=== PATIENT | male | born 1935 | race Caucasian/White ===

== ENCOUNTER 2016-12-21 07:43 | Day surgery (SDC) | payer MEDICARE, BC ==
[~2016-12-21] VITALS: Ht 193 cm; Wt 108.6 kg
[~2016-12-21 07:43] MED LIST: ACIPHEX20 MG PO; ACTOPLUS MET 501 TAB PO; ACTOS 15MG TAB15 MG PO; ACTOS 45MG45 MG/TAB PO; ALDACTONE 25MG25 M1 PO; ALTACE 10MG TAB10 MG PO; ALTACE10 MG PO; ARTANE PO; ASPIR-LOW81 MG PO; ASPIRIN E.C. 8181 MG PO; BENICAR 20MG TA20 MG PO; BENICAR20 MG PO; BYSTOLIC10 MG PO; BYSTOLIC5 MG PO; CARVEDILOL PO; CIPRO 500MG TA500 MG PO; CLOPIDOGREL; CLOPIDOGREL PO; COREG 3.123.125 MG/T PO; DOXYCYCLINE 10100 MG PO; FISH OIL1000 MG PO; FOLIC ACID0.4 MG PO; FORTAMET500 MG PO; GLUCOPHAGE500 MG/TAB PO; GRALISE600 MG PO; IMDUR 30MG30 MG/TAB PO; LANTUS SOLOS100 U/ML SQ; LIPITOR20 MG PO; NIACIN250 M2 PO; NIACIN250 MG PO; NITROSTAT0.4 MG/TAB SL; NORVASC 10MG10 MG PO; OMEPRAZOLE D/R20 MG PO; PIOGLITAZONE-METFORM PO; PLAVIX 75MG TAB75 MG PO; PRAVACHOL 20MG20 MG PO; PRILOSEC 20MG20 MG PO; RANEXA 500MG T500 MG PO; SIMVASTATIN20 MG PO; TYLENOL 500MG500 MG PO; UROCIT PO; VALTREX1 GM PO; VITAMIN D1000 IU PO; VITAMIN D32000 IU PO; ZANTAC 7575 MG PO; ZOCOR20 MG PO; [UNRECOGNIZED DRUG - MIXTURE] PO
[2016-12-21 08:50] LABS: BASO # 0.1 (0.0-0.2); BASO % 0.9 % (0.0-2.0); EOS # 0.4 (0.0-0.7); EOS % 6.6 % (0-4.0); GRAN # 3.6 (1.4-6.5); GRAN % 56.4 % (42.2-75.2); HEMATOCRIT 40.4 % (42.0-52.0); HEMOGLOBIN 13.4 g/dl (13.5-18.0); LYMPH # 1.7 (1.2-3.4); LYMPH % 27.1 % (20.0-51.0); MEAN CELL VOLUME 93 fl (80.0-100.0); MEAN CORPUSCULAR HEMOGLOBIN 31 pg (27.0-31.0); MEAN CORPUSCULAR HGB CONC 33 g/dl (33.0-37.0); MONO # 0.6 (0.1-0.6); MONO % 8.7 % (1.7-9.3); PLATELET COUNT 215 K/mm3 (130-400); RED BLOOD COUNT 4.36 M/mm3 (4.20-5.60); REDCELL DISTRIBUTION WIDTH-CV 13.2 % (11.5-14.5); WHITE BLOOD COUNT 6.3 K/mm3 (4.8-10.8)
[2016-12-21 08:54] VITALS: BP 115/63; PULSE 63; TEMP 97.1
[2016-12-21] MEDS ORDERED: IMDUR 60MG60 MG/TAB PO (08:59)
[2016-12-21] MEDS ORDERED: FOLIC ACID0.4 MG PO (09:01)
[2016-12-21] MEDS ORDERED: NORVASC 5MG5 MG/TAB PO (09:01)
[2016-12-21] MEDS ORDERED: COREG 6.256.25 MG/TA PO (09:02)
[2016-12-21] MEDS ORDERED: VITAMIN D31000 IU PO (09:03)
[2016-12-21 10:30] VITALS: BP 101/54; PULSE 64; TEMP 97.2
[2016-12-21 10:45] VITALS: BP 103/58; PULSE 62
[2016-12-21 11:00] VITALS: BP 109/62; PULSE 61
[2016-12-21 11:15] VITALS: BP 120/67; PULSE 61
== END 2016-12-21 11:45 | disposition home or self-care (01) ==
LOC: SDCO 07:43
PROVIDERS: Urology
DX: N35.8 Other urethral stricture (principal); E11.9 Type 2 diabetes mellitus without complications; Z79.4 Long term (current) use of insulin; I10 Essential (primary) hypertension
CPT/HCPCS: C1769; J0690; J2704; J3010; J7030

== ENCOUNTER 2016-12-31 07:46 | Emergency (ER) | payer MEDICARE, BC ==
[~2016-12-31] VITALS: Ht 193 cm; Wt 109.1 kg
[~2016-12-31 07:46] MED LIST changes: +COREG 6.256.25 MG/TA PO; +IMDUR 60MG60 MG/TAB PO; +NORVASC 5MG5 MG/TAB PO; +VITAMIN D31000 IU PO
[2016-12-31 07:47] VITALS: TEMP 97.9
[2016-12-31 08:37] LABS: BASO # 0.1 (0.0-0.2); EOS # 0.5 (0.0-0.7); EOS % 8.9 % (0-4.0); GRAN # 3.2 (1.4-6.5); GRAN % 52.1 % (42.2-75.2); HEMATOCRIT 44.9 % (42.0-52.0); HEMOGLOBIN 15.3 g/dl (13.5-18.0); LYMPH # 1.9 (1.2-3.4); LYMPH % 31.2 % (20.0-51.0); MEAN CELL VOLUME 91 fl (80.0-100.0); MEAN CORPUSCULAR HEMOGLOBIN 31 pg (27.0-31.0); MEAN CORPUSCULAR HGB CONC 34 g/dl (33.0-37.0); MEAN PLATELET VOLUME 11.5 fl (7.4-10.4); MONO # 0.4 (0.1-0.6); MONO % 6.6 % (1.7-9.3); PLATELET COUNT 245 K/mm3 (130-400); RED BLOOD COUNT 4.93 M/mm3 (4.20-5.60); REDCELL DISTRIBUTION WIDTH-CV 12.8 % (11.5-14.5); WHITE BLOOD COUNT 6.1 K/mm3 (4.8-10.8)
[2016-12-31 08:57] LABS: ADJUSTED CALCIUM 9.5 mg/dL (8.4-10.2); ALANINE AMINOTRANSFERASE 21 U/L (21-72); ALBUMIN 4.3 gm/dL (3.5-5.0); ALKALINE PHOSPHATASE 59 U/L (50-136); ANION GAP 11 mmol/L (7-16); BILIRUBIN,TOTAL 0.9 mg/dL (0.0-1.0); BLOOD UREA NITROGEN 21 mg/dL (9-20); CALCIUM 9.7 mg/dL (8.4-10.2); CARBON DIOXIDE 26 mmol/L (22-30); CHLORIDE 103 mmol/L (98-107); CREATININE, serum 1.25 mg/dL (0.66-1.25); GLUCOSE 152 mg/dL (74-106); POTASSIUM 4.4 mmol/L (3.4-5.0); SODIUM 139 mmol/L (137-145); TOTAL PROTEIN 7.8 gm/dL (6.4-8.2)
[2016-12-31 09:07] LABS: INR 0.9 (0.8-3.0); PROTHROMBIN TIME 10.1 SECONDS (9.7-12.8)
[2016-12-31 09:08] LABS: TROPONIN-I < 0.012 ng/mL (0.000-0.034)
[2016-12-31 09:10] LABS: PARTIAL THROMBOPLASTIN TIME 30.9 SECONDS (26.0-37.0)
[2016-12-31 09:56] VITALS: BP 143/81; PULSE 81
== END 2016-12-31 10:14 | disposition home or self-care (01) ==
LOC: COL.ER 07:46
PROVIDERS: Family Medicine
DX: I25.119 Atherosclerotic heart disease of native coronary artery with unspecified angina pectoris (principal); E11.9 Type 2 diabetes mellitus without complications; E78.5 Hyperlipidemia, unspecified; I25.10 Atherosclerotic heart disease of native coronary artery without angina pectoris; Z95.5 Presence of coronary angioplasty implant and graft; Z95.0 Presence of cardiac pacemaker; I25.2 Old myocardial infarction; R06.02 Shortness of breath; Z79.4 Long term (current) use of insulin

== ENCOUNTER → 2017-02-26 | Outpatient (CLI) | payer MEDICARE, BC | LOC: COL.RAD 10:53 | DX: M47.817 Spondylosis without myelopathy or radiculopathy, lumbosacral region (principal); M43.17 Spondylolisthesis, lumbosacral region; M25.78 Osteophyte, vertebrae; M48.07 Spinal stenosis, lumbosacral region; M51.36 Other intervertebral disc degeneration, lumbar region; Z98.890 Other specified postprocedural states; Z98.1 Arthrodesis status ==

== ENCOUNTER 2017-06-01 07:21 | Outpatient (CLI) | payer MEDICARE, BC ==
[2017-06-01] VITALS (7 sets, daily range): BP systolic 117–136; BP diastolic 59–88; PULSE 59–78
[~2017-06-01] VITALS: Ht 193 cm; Wt 106.3 kg
[2017-06-01 12:22] LABS: CEREBROSPINAL TUBE #4; CSF APPEARANCE CLEAR; CSF COLOR COLORLESS
== END 2017-06-01 10:56 | disposition home or self-care (01) ==
LOC: COL.RAD 07:21
PROVIDERS: Family Medicine
DX: I63.9 Cerebral infarction, unspecified (principal); R90.82 White matter disease, unspecified
CPT/HCPCS: Q9967

== ENCOUNTER → 2017-11-06 | Outpatient (CLI) | payer MEDICARE, BC | LOC: MHCPAIN 08:57 | DX: G89.29 Other chronic pain (principal); M47.817 Spondylosis without myelopathy or radiculopathy, lumbosacral region; M54.16 Radiculopathy, lumbar region; M53.3 Sacrococcygeal disorders, not elsewhere classified; M96.1 Postlaminectomy syndrome, not elsewhere classified; M48.061 Spinal stenosis, lumbar region without neurogenic claudication | CPT/HCPCS: G0463 ==

== ENCOUNTER → 2017-11-28 | Outpatient (CLI) | payer MEDICARE, BC | LOC: MHCPAIN 12:24 | DX: M47.27 Other spondylosis with radiculopathy, lumbosacral region (principal); M48.061 Spinal stenosis, lumbar region without neurogenic claudication; M96.1 Postlaminectomy syndrome, not elsewhere classified | CPT/HCPCS: J1100; Q9967 ==

== ENCOUNTER → 2017-12-12 | Outpatient (CLI) | payer MEDICARE, BC | LOC: MHCPAIN 10:38 | DX: G89.29 Other chronic pain (principal); M47.817 Spondylosis without myelopathy or radiculopathy, lumbosacral region; M54.16 Radiculopathy, lumbar region; M53.3 Sacrococcygeal disorders, not elsewhere classified; M96.1 Postlaminectomy syndrome, not elsewhere classified; M48.061 Spinal stenosis, lumbar region without neurogenic claudication | CPT/HCPCS: G0463 ==

== ENCOUNTER → 2018-05-01 | Outpatient (CLI) | payer MEDICARE, BC | LOC: COL.RAD 07:20 | DX: E11.9 Type 2 diabetes mellitus without complications (principal); K21.9 Gastro-esophageal reflux disease without esophagitis; R68.81 Early satiety | CPT/HCPCS: A9541 ==

== ENCOUNTER 2018-08-05 14:45 | Inpatient (IN) | payer MEDICARE, BC ==
[~2018-08-05] VITALS: Ht 193 cm; Wt 110.6 kg
[2018-08-05] MEDS ORDERED: REGLAN 5MG T5 MG/TAB PO ×2 (15:00)
[2018-08-05] MEDS ORDERED: ACTOPLUS MET 501 TAB PO (15:03)
[2018-08-05 15:18] LABS: BASO # 0.1 (0.0-0.2); BASO % 0.7 % (0.0-2.0); EOS # 0.5 (0.0-0.7); EOS % 5.5 % (0-4.0); GRAN % 57.5 % (42.2-75.2); HEMATOCRIT 42.4 % (42.0-52.0); HEMOGLOBIN 14.1 g/dl (13.5-18.0); LYMPH # 2.4 (1.2-3.4); LYMPH % 27.6 % (20.0-51.0); MEAN CELL VOLUME 93 fl (80.0-100.0); MEAN CORPUSCULAR HEMOGLOBIN 31 pg (27.0-31.0); MEAN CORPUSCULAR HGB CONC 33 g/dl (33.0-37.0); MEAN PLATELET VOLUME 11.4 fl (7.4-10.4); MONO # 0.7 (0.1-0.6); MONO % 8.4 % (1.7-9.3); PLATELET COUNT 250 K/mm3 (130-400); RED BLOOD COUNT 4.56 M/mm3 (4.20-5.60); REDCELL DISTRIBUTION WIDTH-CV 12.8 % (11.5-14.5)
[2018-08-05 15:20] LABS: INR 0.9 (0.8-3.0); PROTHROMBIN TIME 10.4 SECONDS (9.7-12.8)
[2018-08-05 15:22] LABS: PARTIAL THROMBOPLASTIN TIME 30.7 SECONDS (26.0-37.0)
[2018-08-05 15:33] LABS: ALANINE AMINOTRANSFERASE 18 U/L (21-72); ALBUMIN 3.8 gm/dL (3.5-5.0); ALKALINE PHOSPHATASE 65 U/L (50-136); ANION GAP 6 mmol/L (7-16); AST,SGOT 25 U/L (15-37); BILIRUBIN,TOTAL 0.4 mg/dL (0.0-1.0); BLOOD UREA NITROGEN 25 mg/dL (9-20); CALCIUM 9.2 mg/dL (8.4-10.2); CARBON DIOXIDE 26 mmol/L (22-30); CHLORIDE 108 mmol/L (98-107); GLUCOSE 190 mg/dL (74-106); POTASSIUM 4.7 mmol/L (3.4-5.0); SODIUM 140 mmol/L (137-145); TOTAL PROTEIN 7.1 gm/dL (6.4-8.2)
[2018-08-05 15:34] LABS: C-REACTIVE PROTEIN < 0.5 mg/dL (0.0-0.9)
[2018-08-05 16:19] LABS: TROPONIN-I < 0.012 ng/mL (0.000-0.034)
[2018-08-05 16:51] LABS: COLLECTION METHOD CLEAN CATCH
[2018-08-05 17:27] LABS: PH 5 (5-8); SQUAMOUS EPITHELIAL 0-2 /hpf; URINE APPEARANCE Hazy; URINE BACTERIA Rare /hpf; URINE BILIRUBIN Negative (NEGATIVE); URINE BLOOD 1+ (NEGATIVE); URINE COLOR Yellow; URINE GLUCOSE 1+ (NEGATIVE); URINE KETONE Negative (NEGATIVE); URINE LEUKOCYTE ESTERASE 3+ (NEGATIVE); URINE NITRATE Negative (NEGATIVE); URINE PROTEIN(semi-quant) 1+ (NEGATIVE); URINE UROBILINOGEN Negative (NEGATIVE)
[2018-08-05 21:35] VITALS: BP 137/63; PULSE 66; TEMP 98.1
[2018-08-05 23:08] VITALS: BP 114/51; PULSE 97; TEMP 98.2
[2018-08-06 04:40] VITALS: BP 104/40; PULSE 60; TEMP 98.2
[2018-08-06 06:36] LABS: BASO # 0.1 (0.0-0.2); BASO % 0.7 % (0.0-2.0); EOS # 0.5 (0.0-0.7); EOS % 7.2 % (0-4.0); GRAN # 3.8 (1.4-6.5); GRAN % 51.9 % (42.2-75.2); HEMATOCRIT 37.6 % (42.0-52.0); HEMOGLOBIN 12.4 g/dl (13.5-18.0); LYMPH # 2.2 (1.2-3.4); LYMPH % 29.3 % (20.0-51.0); MEAN CELL VOLUME 93 fl (80.0-100.0); MEAN CORPUSCULAR HEMOGLOBIN 31 pg (27.0-31.0); MEAN CORPUSCULAR HGB CONC 33 g/dl (33.0-37.0); MEAN PLATELET VOLUME 11.6 fl (7.4-10.4); MONO # 0.8 (0.1-0.6); MONO % 10.5 % (1.7-9.3); PLATELET COUNT 238 K/mm3 (130-400); RED BLOOD COUNT 4.05 M/mm3 (4.20-5.60); REDCELL DISTRIBUTION WIDTH-CV 12.9 % (11.5-14.5)
[2018-08-06 06:42] LABS: ALBUMIN 3.2 gm/dL (3.5-5.0); BILIRUBIN,TOTAL 0.4 mg/dL (0.0-1.0); CALCIUM 8.7 mg/dL (8.4-10.2); CHOLESTEROL RISK RATIO 3.7; CREATININE, serum 1.27 mg/dL (0.66-1.25); TOTAL PROTEIN 6.3 gm/dL (6.4-8.2)
[2018-08-06 08:32] VITALS: BP 122/57; PULSE 61; TEMP 97.7
[2018-08-06 12:38] VITALS: BP 112/58; PULSE 69; TEMP 98.9
[2018-08-06 15:17] VITALS: BP 112/44; PULSE 61; TEMP 99
[2018-08-06 20:00] VITALS: BP 118/49; PULSE 79; TEMP 98.5
[2018-08-07 02:20] VITALS: BP 118/50; PULSE 71; TEMP 98.2
[2018-08-07 07:30] VITALS: BP 122/51; PULSE 65; TEMP 97.6
[2018-08-07 08:41] LABS: CREATININE, serum 1.22 mg/dL (0.66-1.25); POTASSIUM 4.1 mmol/L (3.4-5.0)
[2018-08-07 10:53] VITALS: BP 136/79; PULSE 64; TEMP 97.2
[2018-08-07] MEDS ORDERED: ASPIRIN 32325 MG/TAB PO (11:34)
[2018-08-07] MEDS ORDERED: SINEMET 25/101 UDTAB PO (11:39)
[2018-08-07] MEDS ORDERED: DOXYCYCLINE HY100 MG PO (11:42)
== END 2018-08-07 14:00 | disposition home health service (06) | DRG 65 ==
LOC: COL.ER 14:45 → MEDICAL 16:59
PROVIDERS: Emergency Medicine; Internal Medicine; Physician Assistant
DX: I63.9 Cerebral infarction, unspecified (principal); N39.0 Urinary tract infection, site not specified; G81.94 Hemiplegia, unspecified affecting left nondominant side; Z66 Do not resuscitate; R13.10 Dysphagia, unspecified; I10 Essential (primary) hypertension; I25.10 Atherosclerotic heart disease of native coronary artery without angina pectoris; I12.9 Hypertensive chronic kidney disease with stage 1 through stage 4 chronic kidney disease, or unspecified chronic kidney disease; E11.22 Type 2 diabetes mellitus with diabetic chronic kidney disease; N18.9 Chronic kidney disease, unspecified; G20 Parkinson's disease; B95.62 Methicillin resistant Staphylococcus aureus infection as the cause of diseases classified elsewhere; E11.42 Type 2 diabetes mellitus with diabetic polyneuropathy; E78.5 Hyperlipidemia, unspecified; Z95.5 Presence of coronary angioplasty implant and graft; Z95.0 Presence of cardiac pacemaker
CPT/HCPCS: 99223-AI; 99232-AI; 99239; A4216; G8978-GP; G8979-GP; G8987-GO; G8988-GO; G8996-GN; G8997-GN; J0696; J1644; J1815; J3370; J7030; J7040

== ENCOUNTER → 2018-09-17 | Outpatient (CLI) | payer MEDICARE, BC ==
[~2018-09-17] MED LIST changes: +ASPIRIN 32325 MG/TAB PO; +DOXYCYCLINE HY100 MG PO; +REGLAN 5MG T5 MG/TAB PO; +SINEMET 25/101 UDTAB PO
== END ==
LOC: COL.RAD 10:30
DX: M48.02 Spinal stenosis, cervical region (principal); R26.1 Paralytic gait

== ENCOUNTER → 2018-11-13 | Outpatient (REF) | LOC: ZLAB.WCH 16:09 | DX: Z01.89 Encounter for other specified special examinations (principal) ==

== ENCOUNTER 2019-01-10 09:45 | Outpatient (RCR) | payer MEDICARE, BC | END 2019-01-13 | disposition home or self-care (01) | LOC: MKS.ESL.PT | DX: I69.354 Hemiplegia and hemiparesis following cerebral infarction affecting left non-dominant side (principal); Z79.82 Long term (current) use of aspirin; Z79.4 Long term (current) use of insulin; Z79.899 Other long term (current) drug therapy ==

== ENCOUNTER 2019-04-09 10:15 | Outpatient (RCR) | payer MEDICARE, BC | END 2019-04-10 12:20 | disposition home or self-care (01) | LOC: MKS.ESL.PT 10:15 | DX: I69.354 Hemiplegia and hemiparesis following cerebral infarction affecting left non-dominant side (principal) ==

== ENCOUNTER 2019-04-25 07:56 | Day surgery (SDC) | payer MEDICARE, BC ==
[~2019-04-25] VITALS: Ht 193 cm; Wt 112.0 kg
[2019-04-25] VITALS (7 sets, daily range): BP systolic 111–117; BP diastolic 56–66; PULSE 62–78; TEMP 97–97.8
[2019-04-25] MEDS ORDERED: SYNTHROID0.05 MG/TA PO (08:49)
[2019-04-25] MEDS ORDERED: ALTACE 10MG TAB10 MG PO (08:52)
[2019-04-25] MEDS ORDERED: RAPATHA SQ (08:56)
[2019-04-25] MEDS ORDERED: FOLIC ACID 40400 MCG PO (08:57)
[2019-04-25] MEDS ORDERED: REPATHA SU140 MG/1 M SQ (09:01)
[2019-04-25] MEDS ORDERED: [UNRECOGNIZED DRUG - OTHER] PO ×2 (09:02→09:06)
[2019-04-25] MEDS ORDERED: CEPHALEXIN500 M1 PO (09:03)
--- NOTE | 2019-04-25 09:13 | NUR ---
TO RM 6 PER WC AT 0805 CALL LIGHT IN REACH
--- NOTE | 2019-04-25 12:00 | NUR ---
TO RM 6 PER CART FROM PACU. ALERT ORIENTED X3, TALKING TO STAFF AND . DENIES PAIN OR DISCOMFORT. DENIES NAUSEA TROY IN PLACE WITH LEG BAG. 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
--- NOTE | 2019-04-25 12:30 | NUR ---
RECEIVED MUFFIN AND APPLE JUICE SITTING UP TALKING WITH .
--- NOTE | 2019-04-25 12:45 | NUR ---
DISCONTINUED 02 PATIENT ONLY ATE A COUPLE BITES OF MUFFIN AND SIPS OF JUICE.
--- NOTE | 2019-04-25 13:10 | NUR ---
RECEIVED DISCHARGE INSTRUCTIONS AND VERBALIZED UNDERSTANDING DISCONTINUED IV AND INT- CATHETER INTACT [facility] ASSISTING PATIENT DRESSED
--- NOTE | 2019-04-25 13:30 | NUR ---
DISCHARGED PER WC BY NURSING STAFF TO PRIVATE CAR IN CARE OF -CHIOMA.
== END 2019-04-25 13:34 | disposition home or self-care (01) ==
LOC: SDCO 07:56
DX: N35.919 Unspecified urethral stricture, male, unspecified site (principal); N40.0 Benign prostatic hyperplasia without lower urinary tract symptoms; E11.9 Type 2 diabetes mellitus without complications; I10 Essential (primary) hypertension; E78.5 Hyperlipidemia, unspecified; I25.10 Atherosclerotic heart disease of native coronary artery without angina pectoris; I25.2 Old myocardial infarction; M19.90 Unspecified osteoarthritis, unspecified site; G20 Parkinson's disease; E11.42 Type 2 diabetes mellitus with diabetic polyneuropathy; Z95.0 Presence of cardiac pacemaker; Z85.818 Personal history of malignant neoplasm of other sites of lip, oral cavity, and pharynx; Z98.52 Vasectomy status; Z79.82 Long term (current) use of aspirin; Z79.4 Long term (current) use of insulin; Z83.3 Family history of diabetes mellitus; Z80.9 Family history of malignant neoplasm, unspecified; Z88.6 Allergy status to analgesic agent; Z90.49 Acquired absence of other specified parts of digestive tract; Z96.642 Presence of left artificial hip joint; Z86.711 Personal history of pulmonary embolism; Z86.73 Personal history of transient ischemic attack (TIA), and cerebral infarction without residual deficits
CPT/HCPCS: J0461; J0690; J2370; J2405; J2704; J3010; J7030

== ENCOUNTER → 2020-01-13 | Outpatient (CLI) | payer MEDICARE, BC ==
[~2020-01-13] MED LIST changes: +CEPHALEXIN500 M1 PO; +FOLIC ACID 40400 MCG PO; +RAPATHA SQ; +REPATHA SU140 MG/1 M SQ; +SYNTHROID0.05 MG/TA PO; +[UNRECOGNIZED DRUG - OTHER] PO
== END ==
LOC: COL.RAD 08:13
DX: Z01.812 Encounter for preprocedural laboratory examination (principal); R91.1 Solitary pulmonary nodule; K76.0 Fatty (change of) liver, not elsewhere classified; N62 Hypertrophy of breast
CPT/HCPCS: Q9967

== ENCOUNTER 2020-01-28 13:38 | Day surgery (SDC) | payer MEDICARE, BC ==
[~2020-01-28] VITALS: Ht 193 cm; Wt 109.0 kg
[2020-01-28 14:28] VITALS: BP 99/67; PULSE 94; TEMP 98.1
[2020-01-28] MEDS ORDERED: TRESIBA FL100 UNIT/1 SQ (14:46)
[2020-01-28] MEDS ORDERED: LEXAPRO 10MG10 MG PO (14:49)
[2020-01-28 17:05] VITALS: BP 136/70; PULSE 62; TEMP 97.4
--- NOTE | 2020-01-28 17:05 | NUR ---
PATIENT TRANSPORTED TO BAY 4 ACCOMPANIED BY PACU STAFF. MONITORS APPLIED. PATIENT ON ROOM AIR. PATIENT DENIES DISCOMFORT AND NAUSEA. PATIENT TALKING WITH STAFF. VSS. 1710 PATIENT GIVEN MUFFIN AND ORANGE JUICE TO DRINK.
[2020-01-28 17:15] VITALS: BP 139/82; PULSE 58
--- NOTE | 2020-01-28 17:20 | NUR ---
VSS. PATIENT EATING AND DRINKING WITHOUT PROBLEMS. TROY INTACT.
[2020-01-28 17:30] VITALS: BP 142/71; PULSE 66
--- NOTE | 2020-01-28 17:30 | NUR ---
VSS. PATIENT LEG BAG DRAINED OF 60CC YELLOW URINE. LEG BAG STRAPS APPLIED. PATIENT DENIES DISCOMFORT AND NAUSEA. 2295 DISCHARGE INSTRUCTIONS GIVEN VERBAL AND WRITTEN. PATIENT GIVEN DISCHARGE PACKET. QUESTIONS ANSWERED AND PATIENT VOICED UNDERSTANDING.
[2020-01-28 17:43] VITALS: BP 130/74; PULSE 60
--- NOTE | 2020-01-28 17:45 | NUR ---
VSS. PATIENT WAS HELPED WITH GETTING DRESSED. PATIENT STATES THAT HE IS ALWAYS UNSTEADY ON HIS FEET. 1749 PATIENT TAKEN BY WHEEL CHAIR TO PRIVATE [facility]. DAUGHTER DRIVING. DAUGHTER INFORMED TO CONTACT DR ESCALANTE'S OFFICE FOR FOLLOWUP TOMORROW. DAUGHTER INFORMED ABOUT TROY BAG IN SUPPLIES FOR NIGHT USAGE. SHE VOICED UNDERSTANDING.
[2020-01-28 17:49] VITALS: BP 136/70; PULSE 62; TEMP 97.4
== END 2020-01-28 17:50 | disposition home or self-care (01) ==
LOC: SDCO 13:38
DX: N35.912 Unspecified bulbous urethral stricture, male (principal); N31.2 Flaccid neuropathic bladder, not elsewhere classified; E11.42 Type 2 diabetes mellitus with diabetic polyneuropathy; I25.10 Atherosclerotic heart disease of native coronary artery without angina pectoris; I10 Essential (primary) hypertension; I25.2 Old myocardial infarction; E78.5 Hyperlipidemia, unspecified; E78.1 Pure hyperglyceridemia; M16.10 Unilateral primary osteoarthritis, unspecified hip; G20 Parkinson's disease; Z86.718 Personal history of other venous thrombosis and embolism; Z79.4 Long term (current) use of insulin; Z79.82 Long term (current) use of aspirin; Z79.899 Other long term (current) drug therapy; Z95.0 Presence of cardiac pacemaker; Z86.73 Personal history of transient ischemic attack (TIA), and cerebral infarction without residual deficits; Z98.52 Vasectomy status; Z85.830 Personal history of malignant neoplasm of bone; Z85.858 Personal history of malignant neoplasm of other endocrine glands
CPT/HCPCS: J0690; J2405; J2704; J3010; J7030

== ENCOUNTER 2020-06-24 06:33 | Day surgery (SDC) | payer MEDICARE, BC ==
[~2020-06-24] VITALS: Ht 193 cm; Wt 110.0 kg
[~2020-06-24 06:33] MED LIST changes: +LEXAPRO 10MG10 MG PO; +TRESIBA FL100 UNIT/1 SQ
[2020-06-24 07:27] VITALS: BP 121/68; PULSE 86; TEMP 97.5
[2020-06-24] MEDS ORDERED: SYNTHROID0.05 MG/TA PO (08:03)
[2020-06-24] MEDS ORDERED: CIPRO 500MG TA500 MG PO (08:04)
[2020-06-24] MEDS ORDERED: TRESIBA FL100 UNIT/1 SQ (08:04)
[2020-06-24] MEDS ORDERED: IMDUR 60MG60 MG/TAB PO (08:04)
[2020-06-24] MEDS ORDERED: PRILOSEC 20MG20 MG PO (08:05)
[2020-06-24] MEDS ORDERED: LEXAPRO 10MG10 MG PO (08:05)
[2020-06-24] MEDS ORDERED: ALTACE 10MG TAB10 MG PO (08:06)
[2020-06-24] MEDS ORDERED: ACTOS 15MG TAB15 MG PO (08:06)
[2020-06-24] MEDS ORDERED: ALDACTONE 25MG25 M1 PO (08:06)
[2020-06-24] MEDS ORDERED: COREG 6.256.25 MG/TA PO (08:07)
[2020-06-24] MEDS ORDERED: GLUCOPHAGE500 MG/TAB PO (08:07)
[2020-06-24] MEDS ORDERED: ASPIRIN 81M81 MG/TA2 PO (08:07)
[2020-06-24 09:31] VITALS: TEMP 98.3
[2020-06-24 09:46] VITALS: BP 125/52; PULSE 60
[2020-06-24 10:01] VITALS: BP 132/76; PULSE 60
[2020-06-24 10:16] VITALS: BP 131/65; PULSE 60
== END 2020-06-24 10:21 | disposition home or self-care (01) ==
LOC: SDCO 06:33
DX: N35.919 Unspecified urethral stricture, male, unspecified site (principal); E11.9 Type 2 diabetes mellitus without complications; I10 Essential (primary) hypertension; Z85.819 Personal history of malignant neoplasm of unspecified site of lip, oral cavity, and pharynx; E78.5 Hyperlipidemia, unspecified; Z98.52 Vasectomy status
CPT/HCPCS: J0690; J2405; J2704; J3010; J7120

== ENCOUNTER 2020-10-14 05:51 | Day surgery (SDC) | payer MEDICARE, BC ==
[~2020-10-14] VITALS: Ht 193 cm; Wt 107.9 kg
[~2020-10-14 05:51] MED LIST changes: +ASPIRIN 81M81 MG/TA2 PO
[2020-10-14 08:28] VITALS: BP 151/75; PULSE 59
--- NOTE | 2020-10-14 08:28 | NUR ---
TO RM 7 PER CART FROM PACU. ALERT ORIENTED X3, TALKING WITH STAFF. PATIENT EATING ICE. TROY CATHETER PATENT WITH LIGHT YELLOW CLEAR URINE. DENIES PAIN OR DISCOMFORT AT CURRENT TIME. DENIES NAUSEA RECEIVED OJ AND MUFFIN.
[2020-10-14 08:39] VITALS: BP 138/72; PULSE 64; TEMP 97.6
[2020-10-14 08:45] VITALS: BP 155/75; PULSE 61
--- NOTE | 2020-10-14 08:45 | NUR ---
ATE 100% AND TOLERATED WELL.
[2020-10-14] MEDS ORDERED: FOLIC ACID0.4 MG PO (08:48)
[2020-10-14] MEDS ORDERED: MASON NATURAL2000 IU PO (08:49)
[2020-10-14] MEDS ORDERED: ASPIRIN 32325 MG/TAB PO (08:51)
[2020-10-14] MEDS ORDERED: REGLAN 5MG T5 MG/TAB PO (08:51)
[2020-10-14] MEDS ORDERED: ALTACE 10MG TAB10 MG PO (08:52)
[2020-10-14] MEDS ORDERED: GLUCOPHAGE500 MG/TAB PO (08:54)
[2020-10-14] MEDS ORDERED: TRESIBA FL100 UNIT/1 SQ (08:55)
[2020-10-14] MEDS ORDERED: CEPHALEXIN500 M1 PO (08:56)
--- NOTE | 2020-10-14 08:58 | NUR ---
MED LIST TAKEN FROM [facility] FAXED OVER YESTERDAY.
[2020-10-14 09:00] VITALS: BP 158/72; PULSE 60
--- NOTE | 2020-10-14 09:00 | NUR ---
LEG BAG PLACED. EMPTIED 200CC LIGHT YELLOW URINE FROM TROY DRAIN BAG.
[2020-10-14] MEDS ORDERED: TEMOVATE0.051 TOP (09:12)
[2020-10-14 09:15] VITALS: BP 151/59; PULSE 60
--- NOTE | 2020-10-14 09:15 | NUR ---
DAUGHTER CALLED FOR RIDE HOME.
--- NOTE | 2020-10-14 09:30 | NUR ---
ASSISTED PATIENT DRESSED. RING PLACED BACK ON.
--- NOTE | 2020-10-14 09:40 | NUR ---
RECEIVED DISCHARGE INSTRUCTIONS AND VERBALIZED UNDERSTANDING. DISCONTINUED IV AND INT- CATHETER INTACT
--- NOTE | 2020-10-14 10:05 | NUR ---
DISCHARGED PER WC BY NURSING STAFF TO PRIVATE CAR IN CARE OF DAUGHTER ROBINSON.
== END 2020-10-14 10:26 | disposition home or self-care (01) ==
LOC: SDCO 05:51
DX: N35.919 Unspecified urethral stricture, male, unspecified site (principal); N40.0 Benign prostatic hyperplasia without lower urinary tract symptoms; I10 Essential (primary) hypertension; E78.5 Hyperlipidemia, unspecified; Z95.0 Presence of cardiac pacemaker; I25.2 Old myocardial infarction; I25.10 Atherosclerotic heart disease of native coronary artery without angina pectoris; Z95.5 Presence of coronary angioplasty implant and graft; K21.9 Gastro-esophageal reflux disease without esophagitis; E11.42 Type 2 diabetes mellitus with diabetic polyneuropathy; G20 Parkinson's disease; Z88.5 Allergy status to narcotic agent
CPT/HCPCS: J2704; J7030

== ENCOUNTER 2020-11-12 11:44 | Day surgery (SDC) | payer MEDICARE, BC ==
[~2020-11-12] VITALS: Ht 193 cm; Wt 106.8 kg
[~2020-11-12 11:44] MED LIST changes: +MASON NATURAL2000 IU PO; +TEMOVATE0.051 TOP
[2020-11-12 12:54] VITALS: BP 103/60; PULSE 76; TEMP 98.2
[2020-11-12 16:25] VITALS: BP 133/68; PULSE 61; TEMP 98.9
[2020-11-12 16:45] VITALS: BP 123/65; PULSE 61
[2020-11-12 17:00] VITALS: BP 136/64; PULSE 60
--- NOTE | 2020-11-12 17:51 | NUR ---
PT RETURNED FROM PACU PER CART INTO BAY#7. PT ALERT AND ORIENTATED. DENIES PAIN OR NAUSEA AT THIS TIME. LUNGS CLEAR, BASES DIMINISHED. HRR, BOWEL SOUNDS PRESENT. PT REQUESTS ORANGE JUICE AND BLUEBERRY MUFFIN. DAUGHTER AT BEDSIDE. IVF INFUSING AND PATENT. WILL CONT TO MONITOR.
--- NOTE | 2020-11-12 17:58 | NUR ---
PT TOLERATING FOOD AND FLUIDS. PT STATES,'IM READY TO GO HOME.' PT DENIES PAIN OR NAUSEA AT THIS TIME. DISMISSAL INSTRUCTIONS EXPLAINED AND SIGNED, DENIES QUESTIONS. IV DC'D, PT TOLERATED WELL.
--- NOTE | 2020-11-12 18:01 | NUR ---
DEPENDENT BAG WAS CHANGED TO A LEG BAG. PT TOLERATED WELL. PT DISCHARGED PER WC TO DAUGHTERS VEHICLE PER ER ENTRANCE. DAUGHTER DRIVING.
== END 2020-11-12 18:15 | disposition home or self-care (01) ==
LOC: SDCO
DX: N35.814 Other anterior urethral stricture, male (principal); E11.42 Type 2 diabetes mellitus with diabetic polyneuropathy; I25.10 Atherosclerotic heart disease of native coronary artery without angina pectoris; I25.2 Old myocardial infarction; I10 Essential (primary) hypertension; M19.90 Unspecified osteoarthritis, unspecified site; E78.5 Hyperlipidemia, unspecified; K21.9 Gastro-esophageal reflux disease without esophagitis; E83.119 Hemochromatosis, unspecified; Z90.89 Acquired absence of other organs; Z85.818 Personal history of malignant neoplasm of other sites of lip, oral cavity, and pharynx; Z85.830 Personal history of malignant neoplasm of bone; Z79.899 Other long term (current) drug therapy; Z20.822 Contact with and (suspected) exposure to COVID-19; Z79.82 Long term (current) use of aspirin; Z98.52 Vasectomy status; Z79.4 Long term (current) use of insulin; Z95.0 Presence of cardiac pacemaker
CPT/HCPCS: J0690; J1100; J2370; J2405; J2704; J3010; J7030

== ENCOUNTER 2021-02-16 12:03 | Day surgery (SDC) | payer MEDICARE, BC ==
[2021-02-16] VITALS (8 sets, daily range): BP systolic 109–163; BP diastolic 58–81; PULSE 59–73; TEMP 97–98.1
[~2021-02-16] VITALS: Ht 193 cm; Wt 107.7 kg
--- NOTE | 2021-02-16 13:45 | NUR ---
Patient admits to wishing to and to having suicidal thoughts. director of convention services and eva was offered, patient refused to speak with them. Patient verbalized that his daughter and friend (a deacon of the [employer]) are his support system and that he speaks with them several times a week. Patient states this is a sufficiant support system for him. Patient denies any plan has been made and that he has no intention in following through with the suicial thoughts.
[2021-02-16] MEDS ORDERED: COREG 6.256.25 MG/TA PO (14:12)
[2021-02-16] MEDS ORDERED: FOLIC ACID0.4 MG PO (14:13)
[2021-02-16] MEDS ORDERED: MASON NATURAL2000 IU PO ×2 (14:14)
[2021-02-16] MEDS ORDERED: IMDUR 60MG60 MG/TAB PO (14:15)
[2021-02-16] MEDS ORDERED: REGLAN 5MG T5 MG/TAB PO (14:17)
[2021-02-16] MEDS ORDERED: ASPIRIN 32325 MG/TAB PO (14:18)
[2021-02-16] MEDS ORDERED: ALDACTONE 25MG25 M1 PO (14:20)
[2021-02-16] MEDS ORDERED: ALTACE 10MG TAB10 MG PO (14:20)
[2021-02-16] MEDS ORDERED: PRILOSEC 20MG20 MG PO (14:22)
[2021-02-16] MEDS ORDERED: GLUCOPHAGE500 MG/TAB PO (14:26)
[2021-02-16] MEDS ORDERED: SYNTHROID 0.0.025 MG PO (14:34)
[2021-02-16] MEDS ORDERED: TRESIBA FL100 UNIT/1 SQ (14:35)
[2021-02-16] MEDS ORDERED: ACTOS 15MG TAB15 MG PO (14:36)
--- NOTE | 2021-02-16 16:00 | NUR ---
Patient arrived back in bay 5 via cart from PACU, Postop vital signs start. Patient is alert and request juice and muffin. Patient has calero cath in place and leg bag. Leg bag has small amount of clear, pale yellow urine in it. Patient denies pain. Daughter is at bedside.
--- NOTE | 2021-02-16 16:15 | NUR ---
Patient sitting up comfortably in bed, denies any discomfort. Patient tolerated fluids and food well. Will continue to monitor.
--- NOTE | 2021-02-16 16:45 | NUR ---
Patient is resting comfortably and denies any needs or discomfort. Vital signs obtained. Blood pressure has increased. Elevated blood pressure was reported to Dr. Wilcox. Received verbal order for Lasix and read it back to confirm. Will continue to monitor.
--- NOTE | 2021-02-16 16:50 | NUR ---
Patient in alert and resting comfortably in bed, denies any needs or discomfort. Vital signs obtained. Blood pressure has decreased without medication or intervention. Will hold Lasix and continue to monitor.
--- NOTE | 2021-02-16 16:50 | NUR ---
New order for 10 mg lasix not to be given per Dr. Wilcox due to patients blood pressure decreasing.
--- NOTE | 2021-02-16 17:05 | NUR ---
Patient is resting comefortably in bed, denies discomfort any needs. Vital signs obtained. Blood pressure stable.
--- NOTE | 2021-02-16 17:15 | NUR ---
Provided verbal education and materials to patient and family. Patient and family verbalized understanding. D/C IV and instructed to dress and then call out when ready.
--- NOTE | 2021-02-16 17:30 | NUR ---
Transfered patient via wheelchair with daughter to personal vehicle.
--- NOTE | 2021-02-16 17:44 | NUR ---
Patient is alert and sitting up comfortably in bed, denies any discomfort. Vital signs obtained. Will continue to monitor.
== END 2021-02-16 17:30 ==
LOC: SDCO 12:03
DX: N35.814 Other anterior urethral stricture, male (principal); I10 Essential (primary) hypertension; E78.5 Hyperlipidemia, unspecified; E11.42 Type 2 diabetes mellitus with diabetic polyneuropathy; I25.2 Old myocardial infarction; I25.10 Atherosclerotic heart disease of native coronary artery without angina pectoris; M16.10 Unilateral primary osteoarthritis, unspecified hip; E83.119 Hemochromatosis, unspecified; Z90.89 Acquired absence of other organs; Z98.52 Vasectomy status; Z79.82 Long term (current) use of aspirin; Z79.899 Other long term (current) drug therapy; Z79.890 Hormone replacement therapy; Z95.0 Presence of cardiac pacemaker; Z95.1 Presence of aortocoronary bypass graft
CPT/HCPCS: J0690; J2704; J7120

== ENCOUNTER 2021-06-22 11:57 | Day surgery (SDC) | payer MEDICARE, BC ==
[~2021-06-22] VITALS: Ht 193 cm; Wt 110.0 kg
[~2021-06-22 11:57] MED LIST changes: +SYNTHROID 0.0.025 MG PO
[2021-06-22 14:22] VITALS: BP 121/64; PULSE 73; TEMP 97.9
[2021-06-22 17:10] VITALS: BP 126/66; PULSE 66; TEMP 98.5
[2021-06-22 17:25] VITALS: BP 143/67; PULSE 60
[2021-06-22 18:25] VITALS: BP 99/79; PULSE 59; TEMP 97.8
== END 2021-06-22 17:40 | disposition home or self-care (01) ==
LOC: SDCO 11:57
DX: N35.812 Other bulbous urethral stricture, male (principal); N31.2 Flaccid neuropathic bladder, not elsewhere classified; I10 Essential (primary) hypertension; E11.42 Type 2 diabetes mellitus with diabetic polyneuropathy; M16.10 Unilateral primary osteoarthritis, unspecified hip; I25.10 Atherosclerotic heart disease of native coronary artery without angina pectoris; I25.2 Old myocardial infarction; G20 Parkinson's disease; Z79.899 Other long term (current) drug therapy; Z79.82 Long term (current) use of aspirin; Z79.4 Long term (current) use of insulin; Z79.84 Long term (current) use of oral hypoglycemic drugs; Z85.29 Personal history of malignant neoplasm of other respiratory and intrathoracic organs; Z85.830 Personal history of malignant neoplasm of bone; Z85.09 Personal history of malignant neoplasm of other digestive organs; Z95.0 Presence of cardiac pacemaker; Z95.818 Presence of other cardiac implants and grafts; Z95.828 Presence of other vascular implants and grafts
CPT/HCPCS: J0690; J2704

== ENCOUNTER → 2021-07-15 | Outpatient (CLI) | payer MEDICARE, BC | LOC: COL.RAD 10:52 | DX: Z01.812 Encounter for preprocedural laboratory examination (principal); K44.9 Diaphragmatic hernia without obstruction or gangrene; K76.0 Fatty (change of) liver, not elsewhere classified; R91.8 Other nonspecific abnormal finding of lung field; Z90.49 Acquired absence of other specified parts of digestive tract | CPT/HCPCS: Q9967 ==

== ENCOUNTER 2022-05-17 21:05 | Observation (INO) | payer MEDICARE, BC ==
[~2022-05-17] VITALS: Ht 193 cm; Wt 102.7 kg
[2022-05-17 21:44] LABS: BASO # 0.1 K/mm3 (0.0-0.2); BASO % 0.9 % (0.0-2.0); EOS # 0.5 K/mm3 (0.0-0.7); EOS % 6.6 % (0.0-4.0); GRAN # 4.2 K/mm3 (1.4-6.5); GRAN % 53.6 % (42.2-75.2); HEMATOCRIT 32.4 % (42.0-52.0); HEMOGLOBIN 10.8 g/dl (13.5-18.0); LYMPH # 2.5 K/mm3 (1.2-3.4); LYMPH % 31.7 % (20.0-51.0); MEAN CELL VOLUME 90 fl (80.0-100.0); MEAN CORPUSCULAR HEMOGLOBIN 30 pg (27-31); MEAN CORPUSCULAR HGB CONC 33 g/dl (33.0-37.0); MEAN PLATELET VOLUME 10.6 fl (7.4-10.4); MONO # 0.5 K/mm3 (0.1-0.6); MONO % 6.2 % (1.7-9.3); PLATELET COUNT 260 K/mm3 (130-400); RED BLOOD COUNT 3.62 M/mm3 (4.20-5.60); REDCELL DISTRIBUTION WIDTH-CV 14.3 % (11.5-14.5)
[2022-05-17 22:01] LABS: ALBUMIN 3.3 gm/dL (3.4-4.8); BILIRUBIN,TOTAL 0.5 mg/dL (0.2-1.2); CREATININE, serum 1.36 mg/dL (0.72-1.25); MAGNESIUM 1.8 mg/dL (1.6-2.6); POTASSIUM 4.4 mmol/L (3.5-4.5); TOTAL PROTEIN 6.8 gm/dL (6.2-8.1)
[2022-05-17 22:05] LABS: TROPONIN-I 0.021 ng/mL (0.00-0.033)
[2022-05-17 22:17] LABS: COLLECTION METHOD CATHETER
[2022-05-17 22:27] LABS: MUCOUS Present (NOT PRESENT); SQUAMOUS EPITHELIAL 0-2 /hpf (0-10); URINE APPEARANCE Clear (CLEAR/HAZY); URINE BACTERIA None Seen /hpf (NONE SEEN); URINE BLOOD Negative (NEGATIVE); URINE COLOR Yellow (YELLOW); URINE GLUCOSE Negative (NEGATIVE); URINE KETONE TRACE (NEGATIVE); URINE NITRATE Negative (NEGATIVE); URINE PROTEIN(semi-quant) TRACE (NEGATIVE); URINE RBC 0-2 /hpf (0-2); URINE UROBILINOGEN 0.2 E.U/dL (0.2-1.0)
[2022-05-17] MEDS ORDERED: SYNTHROID0.05 MG/TA PO (22:48)
[2022-05-17] MEDS ORDERED: IMDUR 60MG60 MG/TAB PO (22:49)
[2022-05-17] MEDS ORDERED: REGLAN 5MG T5 MG/TAB PO (22:49)
[2022-05-18] VITALS (7 sets, daily range): BP systolic 123–175; BP diastolic 50–77; PULSE 61–83; TEMP 97.5–98.8
--- NOTE | 2022-05-18 05:26 | NUR ---
87 yo admitted for further care and management of persistent nausea/vomiting with weight loss and additional concern for a possible UTI with a history of MRSA UTI. ht 193.04 cm wt 102.7 kg SCr 1.36 with estimated CrCl ~40 ml/min half life 27.1 hours Plan: Will give patient an initial loading dose of vancomycin 2000 mg x1 (19.5 mg/kg); followed by a maintenance regimen of vancomycin 1250 mg q24h to target a goal trough of 10-15 mcg/ml. Will follow patient's renal function, micro data, and vancomycin levels as indicated to assess for any necessary changes to regimen. Thank you for this dosing consult.
[2022-05-18 06:55] LABS: HEMOGLOBIN 10.4 g/dl (13.5-18.0); MEAN CELL VOLUME 92 fl (80.0-100.0); MEAN CORPUSCULAR HEMOGLOBIN 31 pg (27-31); MEAN CORPUSCULAR HGB CONC 33 g/dl (33.0-37.0); MEAN PLATELET VOLUME 10.5 fl (7.4-10.4); PLATELET COUNT 207 K/mm3 (130-400); REDCELL DISTRIBUTION WIDTH-CV 14.3 % (11.5-14.5)
[2022-05-18 07:00] LABS: HEMATOCRIT 31.1 % (42.0-52.0)
[2022-05-18 07:05] LABS: CALCIUM 8.6 mg/dL (8.4-10.2); CREATININE, serum 1.09 mg/dL (0.72-1.25); POTASSIUM 3.8 mmol/L (3.5-4.5)
[2022-05-18 07:44] LABS: BAND 3 % (0-10); EOSINOPHIL 5 % (0-4); LYMPHOCYTE 44 % (20.0-51.0); NEUTROPHILS 48 % (42.0-75.2); PLATELET ESTIMATE NORMAL (NORMAL)
--- NOTE | 2022-05-18 09:00 | NUR ---
Assessment complete. A&Ox4. Denies shortness of breath. VS stable. Currently on RA. Rating pain 7/10 on pain scale to lower back-described as constant ache. Also c/o nausea. Assisted with ordering clear liquid tray. LR@75ml/hr to right hand IV-infusing without difficulty. Ayala cath with clear yellow urine. Oncology consult has been called. Plan of care discussed for this shift to include meds, pain/nausea control and calling for questions/concerns. Verbalizes understanding. Call lightin reach. Will monitor.
--- NOTE | 2022-05-18 09:23 | NUR ---
Patient c/o low back pain, rating pain 7/10 on pain scale. Has fentanyl ordered but states it didnt really work last time. Spoke with YESI Langston and new orders received and initiated.
--- NOTE | 2022-05-18 10:43 | NUR ---
Initial visit; Patient and his daughter Dionna thanked Supervising Broker for looking in on him and inquiring about what brought him to the hospital. Patient will be undergoing tests to find out the cause of his health issues. Supervising Broker will continue to look in on him and keep him in her prayers.
[2022-05-18 12:01] LABS: INR 1.2 (0.8-3.0); PROTHROMBIN TIME 13.9 SECONDS (9.7-12.8)
--- NOTE | 2022-05-18 14:31 | NUR ---
Patient c/o nausea. Zofran given per dr order. Will monitor.
--- NOTE | 2022-05-18 14:39 | NUR ---
Hand Endband Cutter attempted to meet with patient to discuss discharge planning, however he was stated he was sick again and had the emesis bag held up. SW notified RN. SW contacted patient's daughter, Dionna (ph#[phone]) to complete intake. Patient lives alone in [place] and Dionna advised she checks on him about every other day and takes care of things he needs. Patient sees Dr. Cox for primary care and obtains medications from [facility] with no difficulties. Patient primarily uses a walker for ambulation but also has a wheelchair if needed. Patient is mostly independent with ADLS however Dionna does assist with bathing. Dionna reports patient has DPOA-HC and can bring a copy to the hospital next time she is here. Dionna would like for patient to return home if possible, however is open to recommendations. PT/OT ordered. Discharge Planning: Home unless otherwise recommended
[2022-05-19] VITALS (11 sets, daily range): BP systolic 111–131; BP diastolic 47–68; PULSE 60–80; TEMP 97.9–99.2
--- NOTE | 2022-05-19 08:00 | NUR ---
Patient laying in bed sleeping, easily awakened by verbal command, patient is RUBY. A&Ox3. VSS. IV CDI, fluids infusing. Denies pain and reports nausea. Nausea medication given as requested. Patient NPO for a procedure. Call light within reach. Emesis bag at the bedside as needed. Call light within reach.
--- NOTE | 2022-05-19 09:40 | NUR ---
PT WAS GIVEN VERSED 1 MG AND FENTANYL 50 MCG
--- NOTE | 2022-05-19 10:12 | NUR ---
Patient to room [address]
--- NOTE | 2022-05-19 10:13 | NUR ---
Follow-up: Nurses were with patient along with his daughter who nodded and thanked Silk Brusher for checking up on Jeffrey. Silk Brusher offered God's blessings.
--- NOTE | 2022-05-19 15:09 | NUR ---
Associate Professor Of Mathematics met with patient's daughter, Dionna while patient was in a procedure to follow up on discharge plan. SW reviewed PT/OT recommendation for Home Health vs SNF. Dionna would like to consider all options at this point as she is unsure about patient returning home. SNF preferences are 1)[facility] and 2) [facility]. Dionna advised they also had a referral sent to [facility] by the primary care office recently. ALINA contacted both SNFs and faxed referrals. SW collaborated with Hospitalist about discharge planning then attended rounding. Hospitalist discussed plan of care and how it related to the discharge plan. Specifically that if patient wants to pursue SNF, he will not be able to start chemotherapy until he is done with SNF. Hospitalist advised that it may be more beneficial for patient to return home with HH and family support so he can follow up with Oncology as soon as possible and begin looking at treatment options based on his test results and diagnosis. Patient's daughter verbalized understanding and is supportive of plan. Patient is also in agreement. Hospitalist indicated that plan will be for discharge tomorrow. ALINA contacted Cristy at [facility] and faxed clinical updates. ALINA advised Cristy that plan is for discharge tomorrow. ALINA encouraged Cristy to contact Dionna to set up a visit. Dionna is also interested in private duty services. ALINA provided a list of local private duty providers in the area. ALINA contacted both [facility] and [facility] to notify them of update in plan. Discharge Plan: Home with [facility]
--- NOTE | 2022-05-19 17:37 | NUR ---
Patient resting in bed, easily awakened with verbal command. Reports pain 4/10, pain medication given as requested. Denies nausea. A&O. VSS. IV CDI, fluids infusing. Ayala dependent drainage. Call light within reach. Bed alarm on
[2022-05-20 04:12] VITALS: BP 134/64; PULSE 57; TEMP 98.2
[2022-05-20 07:31] VITALS: BP 135/63; PULSE 66; TEMP 97.9
[2022-05-20] MEDS ORDERED: PHENERGAN 25 TA25 MG PO (09:00)
[2022-05-20] MEDS ORDERED: ZOFRAN ODT4 MG PO (09:00)
[2022-05-20] MEDS ORDERED: ROXICODONE 55 MG/TAB PO (09:03)
[2022-05-20 11:39] VITALS: BP 117/54; PULSE 61; TEMP 97.9
--- NOTE | 2022-05-20 12:00 | NUR ---
Discharge paperwork reviewed with the patient and daughter. Patient verbalized an understanding to follow doctors orders. Nursing staff transfered the patient by wheelchair to awaiting vehicle. No further needs expressed.
--- NOTE | 2022-05-20 12:10 | NUR ---
IV removed, tip intact. Gauze and tape applied. Patient tolerated well. Patient eating lunch. Call light within reach
--- NOTE | 2022-05-20 12:27 | NUR ---
Package Sealer rounds: Package Sealer attempted visit. RN explained that Patient was going to dialysis so visit was not completed.
--- NOTE | 2022-05-20 16:06 | NUR ---
Patient discharged on this day. DC orders sent to [facility] agency. Agency called and confirmed obtaining. Nothing further.
== END 2022-05-20 12:23 | disposition home health service (06) ==
LOC: COL.ER 21:05 → MEDICAL 23:54
PROVIDERS: Emergency Medicine; Internal Medicine; Nurse Practitioner Family; ADMIT Student in an Organized Health Care Education/Training Program
DX: R11.2 Nausea with vomiting, unspecified (principal); D64.9 Anemia, unspecified; I12.9 Hypertensive chronic kidney disease with stage 1 through stage 4 chronic kidney disease, or unspecified chronic kidney disease; E11.22 Type 2 diabetes mellitus with diabetic chronic kidney disease; N18.9 Chronic kidney disease, unspecified; J98.4 Other disorders of lung; Z86.73 Personal history of transient ischemic attack (TIA), and cerebral infarction without residual deficits; G20 Parkinson's disease; Z79.84 Long term (current) use of oral hypoglycemic drugs; E03.9 Hypothyroidism, unspecified; Z79.890 Hormone replacement therapy; Z79.4 Long term (current) use of insulin; E87.2 Acidosis; N39.0 Urinary tract infection, site not specified; K21.9 Gastro-esophageal reflux disease without esophagitis; Z66 Do not resuscitate
CPT/HCPCS: G0378; J0696; J1650; J1815; J2250; J2270; J2405; J2765; J3010; J3370; J7040; J7050; J7120; Q9967

== ENCOUNTER → 2022-06-05 | Outpatient (CLI) | payer MEDICARE, BC ==
[~2022-06-05] MED LIST changes: +PHENERGAN 25 TA25 MG PO; +ROXICODONE 55 MG/TAB PO; +ZOFRAN ODT4 MG PO
== END ==
LOC: COL.RAD 09:26
DX: C61 Malignant neoplasm of prostate (principal)
CPT/HCPCS: A9503

== ENCOUNTER 2023-08-10 12:30 | Emergency (ER) | payer MEDICARE, BC ==
[~2023-08-10] VITALS: Ht 193 cm; Wt 109.1 kg
[2023-08-10 14:10] LABS: COLLECTION METHOD CATHETER
[2023-08-10 14:44] LABS: URINE APPEARANCE Cloudy (CLEAR/HAZY); URINE BLOOD 3+ (NEGATIVE); URINE COLOR Yellow (YELLOW); URINE GLUCOSE Negative (NEGATIVE); URINE KETONE Negative (NEGATIVE); URINE NITRATE Negative (NEGATIVE); URINE PROTEIN(semi-quant) Negative (NEGATIVE); URINE UROBILINOGEN 0.2 E.U/dL (0.2-1.0)
[2023-08-10 14:45] LABS: SQUAMOUS EPITHELIAL 0-2 /hpf (0-10)
[2023-08-10 14:46] LABS: URINE RBC 20-50 /hpf (0-2)
[2023-08-10 15:10] VITALS: BP 125/65; PULSE 63; TEMP 97.5
== END 2023-08-10 15:10 | disposition home or self-care (01) ==
LOC: COL.ER 12:30
PROVIDERS: Physician Assistant
DX: N40.1 Benign prostatic hyperplasia with lower urinary tract symptoms (principal); R33.8 Other retention of urine

== ENCOUNTER 2023-10-19 15:38 | Inpatient (IN) | payer MEDICARE, BC ==
[~2023-10-19] VITALS: Ht 193 cm; Wt 109.0 kg
[~2023-10-19 15:38] MED LIST changes: +ERLEADA60 MG PO; +TRESIBA100 UNIT/1 SQ
[2023-10-19] MEDS ORDERED: Ondansetron 4 MG/2 ML VIAL IV ONE (16:15)
[2023-10-19] MEDS ORDERED: NS 1,000 ML IV ONE (16:15)
[2023-10-19] MEDS ORDERED: Acetaminophen 325 MG TAB PO ONE (16:15)
[2023-10-19 16:41] LABS: BASO # 0.1 K/mm3 (0.0-0.2); BASO % 0.7 % (0.0-2.0); EOS # 0.2 K/mm3 (0.0-0.7); EOS % 2.1 % (0.0-4.0); GRAN # 8.1 K/mm3 (1.4-6.5); GRAN % 76.1 % (42.2-75.2); HEMOGLOBIN 13.5 g/dl (13.5-18.0); LYMPH # 1.3 K/mm3 (1.2-3.4); LYMPH % 11.9 % (20.0-51.0); MEAN CELL VOLUME 93 fl (80.0-100.0); MEAN CORPUSCULAR HEMOGLOBIN 31 pg (27-31); MEAN CORPUSCULAR HGB CONC 34 g/dl (33.0-37.0); MEAN PLATELET VOLUME 11.2 fl (7.4-10.4); MONO # 0.9 K/mm3 (0.1-0.6); MONO % 8.8 % (1.7-9.3); PLATELET COUNT 214 K/mm3 (130-400); REDCELL DISTRIBUTION WIDTH-CV 13.1 % (11.5-14.5)
[2023-10-19 17:00] LABS: ALBUMIN 3.4 gm/dL (3.4-4.8); C-REACTIVE PROTEIN 0.99 mg/dL (0.00-0.50); CALCIUM 8.9 mg/dL (8.4-10.2); CREATININE, serum 1.42 mg/dL (0.72-1.25); POTASSIUM 3.7 mmol/L (3.5-4.5); TOTAL PROTEIN 6.8 gm/dL (6.2-8.1)
[2023-10-19 17:03] LABS: COLLECTION METHOD CLEAN CATCH
[2023-10-19 17:06] LABS: TROPONIN-I 0.019 ng/mL (0.00-0.033)
[2023-10-19 17:10] LABS: BILIRUBIN,TOTAL 0.7 mg/dL (0.2-1.2)
[2023-10-19 17:11] LABS: URINE APPEARANCE CLOUDY (CLEAR/HAZY); URINE BLOOD TRACE (NEGATIVE); URINE COLOR YELLOW (YELLOW); URINE GLUCOSE NEGATIVE (NEGATIVE); URINE KETONE NEGATIVE (NEGATIVE); URINE NITRATE POSITIVE (NEGATIVE); URINE PROTEIN(semi-quant) 1+ (NEGATIVE); URINE UROBILINOGEN 0.2 E.U/dL (0.2-1.0)
[2023-10-19 17:56] LABS: URINE RBC 0-2 /hpf (0-2); URINE WBC 20-50 /hpf (0-2)
[2023-10-19 17:57] LABS: URINE BACTERIA MANY /hpf (NONE SEEN)
[2023-10-19] MEDS ORDERED: Acetaminophen 325 MG TAB PO PRN (18:45)
[2023-10-19] MEDS ORDERED: NS 1,000 ML IV SCH (18:45)
[2023-10-19] MEDS ORDERED: Albuterol 90 MCG/PUFF 8 GM MDI IH PRN (19:00)
[2023-10-19] MEDS ORDERED: PREDNISONE 5MG5 MG PO (19:10)
[2023-10-19] MEDS ORDERED: [UNRECOGNIZED DRUG - CODE] PO (19:24)
[2023-10-19 19:29] LABS: PROTHROMBIN TIME 11.2 SECONDS (9.7-12.8)
[2023-10-19] MEDS ORDERED: Ondansetron 4 MG/2 ML VIAL IV PRN (19:30)
[2023-10-19] MEDS ORDERED: Glucagon 1 MG VIAL IM PRN (19:45)
[2023-10-19] MEDS ORDERED: Dextrose 50% Water 25 GM/50 ML SYRINGE IV PRN (19:45)
[2023-10-19] MEDS ORDERED: Dextrose (Glucose) 15 GM (4 x 3.75 GM) Chewable TABLET PACK PO PRN (19:45)
--- NOTE | 2023-10-19 20:52 | NUR ---
Vancomycin Initial Dosing Pharmacy Note Ordering provider: Matthew Pacheco MD Indication/duration: UTI - EMPIRIC UNTIL CULTURES RESULT Relevant comorbidities: H/O MRSA UTI , POTENTIAL SLIGHT GRETA BUT UNKNOWN BASELINE LABS: SCR: 1.47 CRCL: 42 ML/MIN Recommendation: Loading dose: 2 grams - GIVEN 1 GRAM INITALLY THEN ORDERED AN ADDITIONAL 1 GRAM Maintenance dose: 1.5 grams every 24 hours Trough goal: 10-15 MG/L IF NESSECARY
[2023-10-19 21:00] VITALS: BP_SYST 126
[2023-10-19] MEDS ORDERED: Carvedilol 6.25 MG TAB PO SCH (21:00)
[2023-10-19] MEDS ORDERED: predniSONE 5 MG TAB PO SCH (21:00)
[2023-10-19] MEDS ORDERED: Insulin Aspart (NovoLOG) SQ SCH (21:00)
[2023-10-19] MEDS ORDERED: Omeprazole 20 MG **** subs to Pantoprazole 40 MG PO SCH (21:00)
[2023-10-19 21:31] VITALS: BP 126/70; PULSE 80; TEMP 99.2
[2023-10-19 22:00] VITALS: BP 126/70; PULSE 80; TEMP 99.2
--- NOTE | 2023-10-19 22:00 | NUR ---
PT BLOOD SUGAR 85. 30 UNITS LEVIMIR ORDERED FOR HS. NOTIFIED NICOLE GARCÍA HELD PER PHONE ORDER.
[2023-10-19 23:40] VITALS: BP 144/67; PULSE 80; TEMP 99
[2023-10-20] VITALS (12 sets, daily range): BP systolic 114–160; BP diastolic 47–80; PULSE 54–80; TEMP 98.2–100.1
--- NOTE | 2023-10-20 01:00 | NUR ---
PT ROSADO OUT FOR HELP GOING TO THE BATHROOM. ASKED FOR US TO STRAUGHT CATH BECAUSE HE DIDNT HAVE ENOUGH STRENGTH TO DO IT HIMSELF, NORMALLY DOES IT AT HOME ON HIS OWN. SUCCESSFULLY EMPTIED 500ML OF DARK YELLOW URINE.
--- NOTE | 2023-10-20 06:42 | NUR ---
pt alert and oriented, although [place]. Has bilat hearing aides at the bedside. Arrived to unit from ED arond 2139. Accompanied by his daughter, whom he also lives with. Shift assessment complete vital, VSS. Slightly reddened folds of groin and bilat buttocks, moisture barrier cream applied. Approval for nystatin powder. High fall risk, yellow gown and socks on. IV to RAC patent. Medicated per emar. C/O 2/10 pain, tylenol given this morning around 0600 for 5/10 pain.Has been having copious amounts of thin white sputum, with mild congestion noted. Denies further need at this time. Daughter will be back this am. Bed alarm set.
[2023-10-20] MEDS ORDERED: Escitalopram 10 MG TAB PO SCH (09:00)
[2023-10-20] MEDS ORDERED: Cholecalciferol (Vit D3) 1000 Units TAB PO SCH (09:00)
[2023-10-20] MEDS ORDERED: Folic Acid 1 MG TAB PO SCH (09:00)
[2023-10-20] MEDS ORDERED: Vancomycin 1.5 GM,Special Dose/Pharmacy Prepared 1.5 GM in NS 250 ML IV SCH (21:00)
--- NOTE | 2023-10-20 22:13 | NUR ---
RECIEVED REPORT FROM LUIS ENRIQUE SAENZ.
--- NOTE | 2023-10-20 23:49 | NUR ---
PT ALERT AND ORIENTED, VSS. UPON ENTERING THE ROOM, PT LAYING IN BED, COMFORTABLE, DENIES PAIN. HAD A GOOD DAY PER REPORT, IS HOPING TO GO HOMW TOMRROW PENDING CULTURES. IV TO RA PATENT. ASSESSED, MEDICATED PER EMAR. DENIES FURTHER NEED AT THIS TIME. PLAN TO PROMOTE INDEPENDANCE AND TO GET UP WITH STAFF OR PT TONIGHT/TOMORROW. CALL LIGHT WITHIN REACH. BED ALARM ENGAGED.
[2023-10-21 01:12] VITALS: BP_SYST 143
[2023-10-21] MEDS ORDERED: NS 1,000 ML IV SCH (03:15)
[2023-10-21 03:31] VITALS: BP 138/65; PULSE 61; TEMP 98.2
[2023-10-21 05:05] VITALS: BP_SYST 138
[2023-10-21 07:43] VITALS: BP 159/66; PULSE 63; TEMP 97.8
--- NOTE | 2023-10-21 08:00 | NUR ---
PATIENT ALERT AND ORIENTED X4. PATIENT HAD A LOW BLOOD SUGAR THIS MORNING. PRN WAS GIVEN. PATIENT GLUCOSE RECHECKED WAS WITHIN NORMAL LIMITS.CALL LIGHT WITHIN REACH. BED AT LOWEST POSITION.
[2023-10-21 09:00] VITALS: BP_SYST 159
[2023-10-21] MEDS ORDERED: cefTRIAXone 2 G in Water For Injection,Sterile 20 ML IV SCH (11:00)
[2023-10-21] MEDS ORDERED: CIPRO 500MG TA500 MG PO (11:27)
[2023-10-21 12:03] VITALS: BP 159/68; PULSE 60; TEMP 98
--- NOTE | 2023-10-21 12:43 | NUR ---
steelworker called patient's room phone due to being in isolation to complete intake. Patient's daughter, Vandana/[facility] answered. She confirms patient lives with her in [place]. Pt sees Dr. Alvarado [facility]. He is independent with ADLS and uses a [facility] for DME. Vandana reports she has no concerns with pt going home and PT cleared him in the room. She inquired about HH after discharge, SW advised the PCP can set this up if they decide to. [facility] on file listing Nicole Ross, and Dionna. PT/OT notes pending Discharge Plan: Home with daughter
--- NOTE | 2023-10-21 12:45 | NUR ---
PATIENT DISCHARGE INSTRUCTIONS GIVEN. PATIENT DAUGHTERS WERE WITH PATIENT AT BED SIDE.PATIENT AND FAMILY QUESTIONS WERE ANSWERED. PATIENT WAS VERY EXCITED TO BE ABLE TO GO HOME AND WATCH THE GAME FROM HOME. PATIENT HELPED GET DRESSED AND ESCORTED OUT OF HOSPITAL.
== END 2023-10-21 12:50 | disposition home or self-care (01) | DRG 178 ==
LOC: COL.ER 15:38 → MEDICAL 18:18
PROVIDERS: Emergency Medicine; Nurse Practitioner Family; ADMIT Internal Medicine
DX: U07.1 COVID-19 (principal); N39.0 Urinary tract infection, site not specified; C61 Malignant neoplasm of prostate; R91.1 Solitary pulmonary nodule; E11.9 Type 2 diabetes mellitus without complications; Z79.4 Long term (current) use of insulin
CPT/HCPCS: J1650; J1815; J2405; J3370; J7030; J7050; J7512